=== PATIENT | female | born 1950 | race American Indian/Alaskan Native ===

== ENCOUNTER 2019-06-14 15:28 | Emergency (ER) | payer MEDICARE ==
--- NOTE | 2019-06-14 15:36 | Event Note ---
ED Screening Note Date of service: 06/14/19 Time: 15:35 ED Screening Note: 69 y/o female comes in for back pain and SOB s/p fall 3 days ago. This initial assessment/diagnostic orders/clinical plan/treatment(s) is/are subject to change based on patients health status, clinical progression and re- assessment by fellow clinical providers in the ED. Further treatment and workup at subsequent clinical providers discretion. Patient/guardian urged not to elope from the ED as their condition may be serious if not clinically assessed and managed. Initial orders include:
[2019-06-14 16:16] LABS: Basophils % (Auto) 0.5 % (0.0-1.8); Eosinophils # (Auto) 0.1 K/mm3 (0.0-0.4); Eosinophils % (Auto) 0.9 % (0.0-4.3); Hematocrit 42.4 % (30.3-42.9); Hemoglobin 14.1 gm/dl (10.1-14.3); Lymphocytes # (Auto) 1.3 K/mm3 (1.2-5.4); Lymphocytes % (Auto) 13.4 % (13.4-35.0); Mean Corpuscular HGB Conc 33 % (30-34); Mean Corpuscular Volume 91 fl (79-97); Monocytes # (Auto) 0.5 K/mm3 (0.0-0.8); Platelet Count 223 K/mm3 (140-440); Red Blood Count 4.68 M/mm3 (3.65-5.03); Red Cell Distribution Width 14.3 % (13.2-15.2)
--- NOTE | 2019-06-14 16:16 | XRay Report ---
CHEST 2 VIEWS INDICATION / CLINICAL INFORMATION: back and chest pain s/p fall. COMPARISON: None available. FINDINGS: SUPPORT DEVICES: None. HEART / MEDIASTINUM: Heart is upper normal size. LUNGS / PLEURA: No significant pulmonary or pleural abnormality. Lungs appear slightly hyperinflated with mild bibasilar scarring. ADDITIONAL FINDINGS: There are healed bilateral rib fractures. No acute, displaced rib fracture or ot her skeletal abnormality. IMPRESSION: 1. No acute findings. Signer Name: Ming Angulo MD Signed: 06/14/2019 4:11 PM Workstation Name: [id number]
--- NOTE | 2019-06-14 16:17 | XRay Report ---
LUMBAR SPINE 2 VIEWS INDICATION / CLINICAL INFORMATION: back pain s/p fall.. COMPARISON: None available. FINDINGS: VERTEBRAE: No acute fracture. No significant malalignment. DISC SPACES / FACET JOINTS:Disc spaces are reasonably preserved. Mild facet degenerative arthrosis at L4-5 and L5-S1. PARASPINAL SOFT TISSUES:No significant abnormality. ADDITIONAL FINDINGS: Cholecystectomy clips in the right upper quadrant. Signer Name: Ming Angulo MD Signed: 06/14/2019 4:12 PM Workstation Name: [id number]
[2019-06-14] MEDS ORDERED: ZOFRAN IV ONE (16:25)
[2019-06-14] MEDS ORDERED: SUBLIMAZE IV ONE (16:25)
[2019-06-14 16:29] LABS: Alanine Aminotransferase 23 units/L (7-56); Albumin 4.6 g/dL (3.9-5); BUN/Creatinine Ratio 29; Blood Urea Nitrogen 20 mg/dL (7-17); Calcium 9.8 mg/dL (8.4-10.2); Hemolysis Index 10
--- NOTE | 2019-06-14 16:30 | Emergency Department Report ---
HPI - General Chief Complaint: Fall Time Seen by Provider: 06/14/19 16:17 - HPI HPI: Room 4 The patient is a 69-year-old female presenting with a chief complaint of left flank pain. Patient states 2 days while attempting to sit down in a chair, the chair rolled from under her causing her fall striking her lower back on the chair. The patient complains of pain in her left flank since the fall. Patient complains of pain whenever she attempts to cough. Patient denies loss of consciousness. Patient gives her pain a score of 10/10 Location: [See above] Duration: [See above] Quality: [See above] Severity: [See above] Modifying factors: [see above] Context: [see above] Mode of transportation: [not driving] ED Past Medical Hx - Past Medical History Hx Hypertension: Yes Hx Congestive Heart Failure: Yes Hx COPD: Yes (home O2-4L) - Surgical History Hx Cholecystectomy: Yes Additional Surgical History: Thyroidectomy, 3 - Family History Family history: no significant - Social History Smoking Status: Former Smoker (none 3 years) Substance Use Type: Alcohol (occasional) - Medications Home Medications: Home Medications Medication Instructions Recorded Confirmed Last Taken Type Alendronate Sodium 70 mg PO 1XW 10/24/18 10/24/18 Unknown History Famotidine 20 mg PO HS 10/24/18 10/24/18 Unknown History Incruse Ellipta 1 applic INHALATION BID 10/24/18 10/24/18 Unknown History Spironolactone 50 mg PO BID 10/24/18 10/24/18 Unknown History busPIRone 5 mg PO BID 10/24/18 10/24/18 Unknown History ALBUTEROL Inhaler(NF) [VENTOLIN 1 puff IH Q4HR PRN #1 inha 10/26/18 Unknown Rx Inhaler(NF)] Ciprofloxacin HCl [Ciprofloxacin 500 mg PO BID #10 tablet 10/26/18 Unknown Rx TAB] Prednisone [predniSONE 5 mg (6-Day 5 mg PO .TAPER #1 tab.ds.pk 10/26/18 Unknown Rx Pack, 21 Tabs)] guaiFENesin ER [Mucinex ER] 600 mg PO BID #14 tablet 10/26/18 Unknown Rx metroNIDAZOLE [Flagyl] 500 mg PO Q8HR #14 tablet 10/26/18 Unknown Rx traMADol [Ultram] 50 mg PO Q6HR PRN #14 tablet 10/26/18 Unknown Rx Cyclobenzaprine [Flexeril] 10 mg PO TID PRN #14 tablet 06/14/19 Unknown Rx HYDROcodone/APAP 5-325 [[place] 1 - 2 each PO Q6HR PRN #14 tablet 06/14/19 Unknown Rx 5/325] Ibuprofen [Motrin 800 MG tab] 800 mg PO Q8HR PRN #20 tablet 06/14/19 Unknown Rx ED Review of Systems ROS: Stated complaint: BACK PAIN Other details as noted in HPI Constitutional: no symptoms reported Eyes: denies: eye pain ENT: denies: throat pain Respiratory: no symptoms reported Cardiovascular: denies: chest pain Endocrine: no symptoms reported Gastrointestinal: denies: abdominal pain Genitourinary: denies: dysuria Musculoskeletal: back pain Neurological: denies: headache Physical Exam - Physical Exam Vital Signs: Vital Signs 06/14/19 15:36 Temperature 98 F Pulse Rate 94 H Respiratory 24 Rate Blood Pressure 150/81 O2 Sat by Pulse 96 Oximetry Physical Exam: GENERAL: The patient is well-developed well-nourished female lying on stretcher appearing to be in mild discomfort. [] HEENT: Normocephalic. Atraumatic. Extraocular motions are intact. Patient has moist mucous membranes. NECK: Supple. Trachea midline CHEST/LUNGS: There is no respiratory distress noted. HEART/CARDIOVASCULAR: Regular. There is no tachycardia. ention. SKIN: There is no rash. There is no edema. There is no diaphoresis. NEURO: The patient is awake, alert, and oriented. The patient is cooperative. The patient has normal speech MUSCULOSKELETAL: There is no tenderness of the lumbar spine. There is tenderness to palpation and left flank. ED Course Vital Signs 06/14/19 15:36 Temperature 98 F Pulse Rate 94 H Respiratory 24 Rate Blood Pressure 150/81 O2 Sat by Pulse 96 Oximetry ED Medical Decision Making - Lab Data Result diagrams: 06/14/19 16:01 06/14/19 16:01 Laboratory Tests 06/14/19 06/14/19 06/14/19 16:01 16:01 19:59 WBC 9.4 RBC 4.68 Hgb 14.1 Hct 42.4 MCV 91 MCH 30 MCHC 33 RDW 14.3 Plt Count 223 Lymph % (Auto) 13.4 Major % (Auto) 5.0 Eos % (Auto) 0.9 Baso % (Auto) 0.5 Lymph # 1.3 Major # 0.5 Eos # 0.1 Baso # 0.0 Seg Neutrophils % 80.2 H Seg Neutrophils # 7.5 Sodium 141 Potassium 3.6 Chloride 104.0 Carbon Dioxide 25 Anion Gap 16 BUN 20 H Creatinine 0.7 Estimated GFR > 60 BUN/Creatinine Ratio 29 Glucose 143 H Calcium 9.8 Total Bilirubin 0.20 AST 16 ALT 23 Alkaline Phosphatase 83 NT-Pro-B Natriuret Pep 208.2 Total Protein 7.9 Albumin 4.6 Albumin/Globulin Ratio 1.4 Urine Color Straw Urine Turbidity Clear Urine pH 6.0 Urine Protein <15 mg/dl Urine Glucose (UA) Neg Urine Ketones Neg Urine Blood Neg Urine Nitrite Neg Urine Bilirubin Neg Urine Urobilinogen < 2.0 Ur Leukocyte Esterase Neg Urine WBC (Auto) < 1.0 Urine RBC (Auto) 1.0 U Epithel Cells (Auto) 2.0 Urine Mucus Few - Radiology Data Radiology results: report reviewed (lumbar spine x-ray, chest x-ray, CT abdomen and pelvis), image reviewed (lumbar spine x-ray, chest x-ray, CT abdomen and pelvis) interpreted by me: Lumbar spine x-ray-no acute fracture Chest x-ray-no focal infiltrates, no pneumothorax [facility] [address] [place] [address] XRay Report Signed Patient: KALEY HAGEN MR#: [id number] : 1950 Acct:[id number] Age/Sex: 69 / F ADM Date: 06/14/19 Loc: ED Attending Dr: Ordering Physician: SHIRLEY LUGO Date of Service: 06/14/19 Procedure(s): XR spine lumbosacral 2-3V Accession Number(s): [id number] cc: SHIRLEY LUGO Fluoro Time In Minutes: LUMBAR SPINE 2 VIEWS INDICATION / CLINICAL INFORMATION: back pain s/p fall.. COMPARISON: None available. FINDINGS: VERTEBRAE: No acute fracture. No significant malalignment. DISC SPACES / FACET JOINTS:Disc spaces are reasonably preserved. Mild facet degenerative arthrosis at L4-5 and L5-S1. PARASPINAL SOFT TISSUES:No significant abnormality. ADDITIONAL FINDINGS: Cholecystectomy clips in the right upper quadrant. Signer Name: Ming Angulo MD Signed: 06/14/2019 4:12 PM Workstation Name: [id number] Transcribed By: DT Dictated By: Kar Angulo MD Electronically Authenticated By: Kar Angulo MD Signed Date/Time: 06/14/19 161 DD/ 10 TD/TT: [address] [address] XRay Report Signed Patient: KALEY HAGEN MR#: [id number] : 1950 Acct:[id number] Age/Sex: 69 / F ADM Date: 06/14/19 Loc: ED Attending Dr: Ordering Physician: SHIRLEY LUGO Date of Service: 06/14/19 Procedure(s): XR chest routine 2V Accession Number(s): [id number] cc: SHIRLEY LUGO Fluoro Time In Minutes: CHEST 2 VIEWS INDICATION / CLINICAL INFORMATION: back and chest pain s/p fall. COMPARISON: None available. FINDINGS: SUPPORT DEVICES: None. HEART / MEDIASTINUM: Heart is upper normal size. LUNGS / PLEURA: No significant pulmonary or pleural abnormality. Lungs appear slightly hyperinflated with mild bibasilar scarring. ADDITIONAL FINDINGS: There are healed bilateral rib fractures. No acute, displaced rib fracture or other skeletal abnormality. IMPRESSION: 1. No acute findings. Signer Name: Ming Angulo MD Signed: 06/14/2019 4:11 PM Workstation Name: [id number] Transcribed By: DT Dictated By: Kar Angulo MD Electronically Authenticated By: Kar Angulo MD Signed Date/Time: 06/14/191610 DD/ 1610 TD/TT: [address] [address] Cat Scan Report Signed Patient: KALEY HAGEN MR#: [id number] : 1950 Acct:[id number] Age/Sex: 69 / F ADM Date: 06/14/19 Loc: ED Attending Dr: Ordering Physician: RYAN MCCLELLAND MD Date of Service: 06/14/19 Procedure(s): CT abdomen pelvis w con Accession Number(s): [id number] cc: RYAN MCCLELLAND MD CT ABDOMEN AND PELVIS WITH IV CONTRAST INDICATION: left flank pain after fall. COMPARISON: None available. TECHNIQUE: Axial CT images were obtained through the abdomen and pelvis after 100 mL IV contrast. All CT scans at this location are performed using CT dose reduction for ALARA by means of automated exposure control. FINDINGS -- ABDOMEN: Lung Bases: No acute abnormality. Liver: Normal. Gallbladder: Removed. Bile Ducts: Normal. Pancreas: Normal. Spleen: Normal. Adrenals: Normal. Right Kidney and Proximal Ureter: Normal. Several tiny cysts Left Kidney and Proximal Ureter: Several tiny cysts. . Stomach and Bowel: Normal. Lymph Nodes: No significant adenopathy. Aorta: No significant abnormality. IVC: Normal. Additional Findings: None. FINDINGS -- PELVIS: Urinary Bladder and Distal Ureters: Normal. Reproductive Organs: No acute abnormality. Appendix: Normal. Bowel: No acute abnormality. Free Fluid: None. Lymph Nodes: No significant adenopathy. Additional Findings: None. Skeletal System: Mild thoracolumbar degenerative change. There is some evidence of low-level compression deformity involving the L3 vertebral body, likely chronic. Impression: No acute intra-abdominal findings. No splenic laceration or injury. Both kidneys appear grossly unremarkable aside from several cysts. Signer Name: Shekhar Carver MD Signed: 06/14/2019 7:18 PM Workstation Name: [id number] Transcribed By: BC Dictated By: Shekhar Carver MD Electronically Authenticated By: Shekhar Carver MD Signed Date/Time: 06/14/191917 DD/ 15 TD/TT: - Differential Diagnosis lumbar contusion, renal contusion Critical care attestation.: If time is entered above; I have spent that time in minutes in the direct care of this critically ill patient, excluding procedure time. ED Disposition Clinical Impression: Contusion of left side of back Disposition: DC-01 TO HOME OR SELFCARE Is pt being admited?: No Does the pt Need Aspirin: No Condition: Stable Additional Instructions: Return to the emergency department immediately should you develop worsening symptoms, fever, inability to tolerate food or liquid or any other concerns. Prescriptions: Cyclobenzaprine [Flexeril] 10 mg PO TID PRN #14 tablet PRN Reason: Muscle Spasm Ibuprofen [Motrin 800 MG tab] 800 mg PO Q8HR PRN #20 tablet PRN Reason: Pain, Moderate (4-6) HYDROcodone/APAP 5-325 [[place] 5/325] 1 - 2 each PO Q6HR PRN #14 tablet PRN Reason: Pain Referrals: TEA SOLORIO MD [Primary Care Provider] - 3-5 Days Time of Disposition: 20:26
--- NOTE | 2019-06-14 19:23 | Cat Scan Report ---
CT ABDOMEN AND PELVIS WITH IV CONTRAST INDICATION: left flank pain after fall. COMPARISON: None available. TECHNIQUE: Axial CT images were obtained through the abdomen and pelvis after 100 mL IV contrast. All CT scans a t this location are performed using CT dose reduction for ALARA by means of automated exposure contro l. FINDINGS -- ABDOMEN: Lung Bases: No acute abnormality. Liver: Normal. Gallbladder: Removed. Bile Ducts: Normal. Pancreas: Normal. Spleen: Normal. Adrenals: Normal. Right Kidney and Proximal Ureter: Normal. Several tiny cysts Left Kidney and Proximal Ureter: Several tiny cysts. . Stomach and Bowel: Normal. Lymph Nodes: No significant adenopathy. Aorta: No significant abnormality. IVC: Normal. Additional Findings: None. FINDINGS -- PELVIS: Urinary Bladder and Distal Ureters: Normal. Reproductive Organs: No acute abnormality. Appendix: Normal. Bowel: No acute abnormality. Free Fluid: None. Lymph Nodes: No significant adenopathy. Additional Findings: None. Skeletal System: Mild thoracolumbar degenerative change. There is some evidence of low-level compress ion deformity involving the L3 vertebral body, likely chronic. Impression: No acute intra-abdominal findings. No splenic laceration or injury. Both kidneys appear g rossly unremarkable aside from several cysts. Signer Name: Shekhar Carver MD Signed: 06/14/2019 7:18 PM Workstation Name: [id number]
[2019-06-14 20:22] LABS: Bilirubin,Urine NEG (Negative); Blood,Urine NEG (Negative); Color,Urine Straw (Yellow); Mucus,Urine FEW /HPF; Protein,Urine <15 mg/dL mg/dL (Negative); Urobilinogen,Urine < 2.0 mg/dL (<2.0); WBC,Urine < 1.0 /HPF (0.0-6.0)
[2019-06-14 20:37] VITALS: BP 143/76
== END 2019-06-14 20:40 | disposition home or self-care (01) ==
LOC: ED 15:28
DX: S30.0XXA Contusion of lower back and pelvis, initial encounter (principal); I11.0 Hypertensive heart disease with heart failure; I50.9 Heart failure, unspecified; J44.9 Chronic obstructive pulmonary disease, unspecified; Z90.49 Acquired absence of other specified parts of digestive tract; Z87.891 Personal history of nicotine dependence; Z99.81 Dependence on supplemental oxygen; Z90.89 Acquired absence of other organs; W18.30XA Fall on same level, unspecified, initial encounter; Y93.89 Activity, other specified; Y92.89 Other specified places as the place of occurrence of the external cause; Y99.8 Other external cause status
CPT/HCPCS: 36415; 71046; 72100; 74177; 80053; 81001; 83880; 85025; 96374; 96375; 99284; J2405; J3010; Q9967

== ENCOUNTER 2019-11-06 08:47 | Observation (INO) | payer MEDICARE ==
[2019-11-06] MEDS ORDERED: LORazepam 2 MG/ML VIAL IV ONE (09:42)
[2019-11-06] MEDS ORDERED: ALUM-MAG HYDROXIDE-SIMETHICONE 200-200-20MG/5ML ORAL LIQD 30 ML PO ONE (09:43)
--- NOTE | 2019-11-06 09:47 | Emergency Department Report ---
<HELADIO LEBRON - Last Filed: 11/06/19 15:12> ED General Adult HPI - General Chief complaint: Dyspnea/Respdistress Stated complaint: GENARO Time Seen by Provider: 11/06/19 09:25 Source: patient Mode of arrival: Wheelchair Limitations: No Limitations - History of Present Illness Initial comments: This is a 69-year-old female with a history of COPD on home O2. She states that she was constipated and tried to take 2 of her prescription medicines and another pill for her constipation prior to arrival. She claims that they got st uck in her neck. She admits to having problems with her nerves. She has been placing multiple topical analgesic patches on her neck and anterior chest and abdomen. She is really quite anxious at the time of my encounter. He repeatedly states "I need to belch". H and doesn't complain of acute shortness of breath nor acute pain. -: Gradual - Related Data Previous Rx's Medication Instructions Recorded Last Taken Type ALBUTEROL Inhaler(NF) [VENTOLIN 1 puff IH Q4HR PRN #1 inha 10/26/18 07/28/19 Rx Inhaler(NF)] ALBUTEROL NEB's [Proventil 0.083% 2.5 mg IH Q4HRT PRN #15 nebu 08/01/19 Unknown Rx NEBS] Acetaminophen [Acetaminophen TAB] 2 tab PO Q4H PRN #15 tablet 08/01/19 Unknown Rx Arformoterol Nebu [Brovana Nebu] 15 mcg IH Q12HRT #30 ml 08/01/19 Unknown Rx Aspirin 325 mg PO QDAY #30 08/01/19 07/28/19 Rx Budesonide [Pulmicort Respules] 0.5 mg IH Q12HRT #30 nebu 08/01/19 Unknown Rx Ipratropium/Albuterol Sulfate 1 ampul IH Q6HRT #30 ampul.neb 08/01/19 Unknown Rx [DUONEB *Not for PRN Use*] Polyethylene Glycol 3350 [Miralax 17 gm PO QDAY PRN #1 powd.pack 08/01/19 Unknown Rx 3350] amLODIPine 10 mg PO DAILY #30 tablet 08/01/19 Unknown Rx hydrALAZINE [Apresoline TAB] 25 mg PO Q8HR #90 tablet 08/01/19 Unknown Rx methylPREDNISolone [Medrol 4MG 1 dose PO DAILY #1 tab.ds.pk 08/01/19 Unknown Rx DOSEPAK (21 tabs)] oxyCODONE /ACETAMINOPHEN [Percocet 1 tab PO Q6H PRN #15 tablet 08/01/19 Unknown Rx 5/325 mg] Allergies Allergy/AdvReac Type Severity Reaction Status Date / Time codeine Allergy Itching Verified 10/23/18 15:00 ED Review of Systems Comment: Unobtainable due to pts medical conditions ED Past Medical Hx - Past Medical History Previous Medical History?: Yes Hx Hypertension: Yes Hx Congestive Heart Failure: Yes Hx Asthma: Yes Hx COPD: Yes (home O2-4L) Hx Tuberculosis: No - Surgical History Past Surgical History?: Yes Hx Cholecystectomy: Yes Additional Surgical History: Thyroidectomy, 3 - Social History Smoking Status: Former Smoker Substance Use Type: None - Medications Home Medications: Home Medications Medication Instructions Recorded Confirmed Last Taken Type ALBUTEROL Inhaler(NF) [VENTOLIN 1 puff IH Q4HR PRN #1 inha 10/26/18 07/28/19 07/28/19 Rx Inhaler(NF)] ALBUTEROL NEB's [Proventil 0.083% 2.5 mg IH Q4HRT PRN #15 nebu 08/01/19 Unknown Rx NEBS] Acetaminophen [Acetaminophen TAB] 2 tab PO Q4H PRN #15 tablet 08/01/19 Unknown Rx Arformoterol Nebu [Brovana Nebu] 15 mcg IH Q12HRT #30 ml 08/01/19 Unknown Rx Aspirin 325 mg PO QDAY #30 08/01/19 07/28/19 07/28/19 Rx Budesonide [Pulmicort Respules] 0.5 mg IH Q12HRT #30 nebu 08/01/19 Unknown Rx Ipratropium/Albuterol Sulfate 1 ampul IH Q6HRT #30 ampul.neb 08/01/19 Unknown Rx [DUONEB *Not for PRN Use*] Polyethylene Glycol 3350 [Miralax 17 gm PO QDAY PRN #1 powd.pack 08/01/19 Unknown Rx 3350] amLODIPine 10 mg PO DAILY #30 tablet 08/01/19 Unknown Rx hydrALAZINE [Apresoline TAB] 25 mg PO Q8HR #90 tablet 08/01/19 Unknown Rx methylPREDNISolone [Medrol 4MG 1 dose PO DAILY #1 tab.ds.pk 08/01/19 Unknown Rx DOSEPAK (21 tabs)] oxyCODONE /ACETAMINOPHEN [Percocet 1 tab PO Q6H PRN #15 tablet 08/01/19 Unknown Rx 5/325 mg] ED Physical Exam - General Limitations: Other (extreme anxiety) General appearance: alert, anxious - Head Head exam: Present: atraumatic, normocephalic - Eye Eye exam: Present: normal appearance. Absent: scleral icterus - ENT ENT exam: Present: mucous membranes moist - Neck Neck exam: Present: normal inspection. Absent: tenderness, meningismus - Respiratory Respiratory exam: Present: normal lung sounds bilaterally. Absent: respiratory distress - Cardiovascular Cardiovascular Exam: Present: regular rate, normal rhythm. Absent: systolic murmur, diastolic murmur, rubs, gallop - GI/Abdominal GI/Abdominal exam: Present: soft, normal bowel sounds, hernia (ventral hernia). Absent: distended, tenderness, guarding, rebound, rigid - Extremities Exam Extremities exam: Present: normal inspection - Back Exam Back exam: Present: normal inspection - Neurological Exam Neurological exam: Present: alert, oriented X3, CN II-XII intact. Absent: motor sensory deficit - Psychiatric Psychiatric exam: Present: agitated, anxious - Skin Skin exam: Present: warm, dry, intact, normal color, other (multiple topical patches placed on the patient's neck she and upper abdomen). Absent: rash ED Course - Reevaluation(s) Reevaluation #1: She has been seen by GI. They have ordered contrast esophagram. This is yet pending. Labs are yet pending. The patient was signed out to Dr. Larsen for final disposition. 11/06/19 15:03 Reevaluation #2: She required another neb. It has been ordered. Solu-Medrol ordered. 11/06/19 15:11 ED Disposition Clinical Impression: Foreign body COPD (chronic obstructive pulmonary disease) Qualifiers: COPD type: unspecified COPD Qualified Code(s): J44.9 - Chronic obstructive pulmonary disease, unspecified Dysphagia Qualifiers: Dysphagia type: unspecified Qualified Code(s): R13.10 - Dysphagia, unspecified Disposition: OP ADMIT IP TO THIS HOSP Condition: Stable Instructions: Chronic Obstructive Pulmonary Disease (ED) Referrals: TEA SOLORIO MD [Primary Care Provider] - 3-5 Days <MICHEAL MOJICA - Last Filed: 11/06/19 16:58> ED Review of Systems ROS: Stated complaint: GENARO Other details as noted in HPI ED Course Vital Signs 11/06/19 11/06/19 11/06/19 08:50 09:26 09:31 Temperature 98.4 F Pulse Rate 112 H 91 H Pulse Rate [ Anterior Bilateral Throughout] Respiratory 28 H 26 H Rate Respiratory Rate [Anterior Bilateral Throughout] Blood Pressure 174/96 Blood Pressure [left arm\\] O2 Sat by Pulse 95 98 98 Oximetry 11/06/19 11/06/19 11/06/19 09:32 10:01 10:11 Temperature 98.6 F Pulse Rate 98 H Pulse Rate [ 92 H Anterior Bilateral Throughout] Respiratory 24 Rate Respiratory 24 Rate [Anterior Bilateral Throughout] Blood Pressure 182/93 Blood Pressure 182/89 [left arm\\] O2 Sat by Pulse 96 Oximetry 11/06/19 11/06/19 11/06/19 11:00 12:00 13:00 Temperature Pulse Rate 98 H 96 H 96 H Pulse Rate [ Anterior Bilateral Throughout] Respiratory 23 23 23 Rate Respiratory Rate [Anterior Bilateral Throughout] Blood Pressure 162/91 163/86 162/83 Blood Pressure [left arm\\] O2 Sat by Pulse 96 94 94 Oximetry 11/06/19 11/06/19 11/06/19 14:00 15:01 16:00 Temperature Pulse Rate 93 H 87 Pulse Rate [ Anterior Bilateral Throughout] Respiratory 24 20 Rate Respiratory Rate [Anterior Bilateral Throughout] Blood Pressure 155/83 155/83 160/81 Blood Pressure [left arm\\] O2 Sat by Pulse 95 99 97 Oximetry - Reevaluation(s) Reevaluation #3: 11/06/19 16:57 Fluoroscopy results are reviewed and appreciated. Gastroenterology results are reviewed and appreciated. Hospital physician, Dr. Tong to admit patient to the medical service for COPD exacerbation, and presumed foreign body. ED Medical Decision Making - Lab Data Result diagrams: 11/06/19 15:11 11/06/19 15:11 Vital Signs 11/06/19 11/06/19 11/06/19 08:50 09:26 09:31 Temperature 98.4 F Pulse Rate 112 H 91 H Pulse Rate [ Anterior Bilateral Throughout] Respiratory 28 H 26 H Rate Respiratory Rate [Anterior Bilateral Throughout] Blood Pressure 174/96 Blood Pressure [left arm\\] O2 Sat by Pulse 95 98 98 Oximetry 11/06/19 11/06/19 11/06/19 09:32 10:01 10:11 Temperature 98.6 F Pulse Rate 98 H Pulse Rate [ 92 H Anterior Bilateral Throughout] Respiratory 24 Rate Respiratory 24 Rate [Anterior Bilateral Throughout] Blood Pressure 182/93 Blood Pressure 182/89 [left arm\\] O2 Sat by Pulse 96 Oximetry 11/06/19 11/06/19 11/06/19 11:00 12:00 13:00 Temperature Pulse Rate 98 H 96 H 96 H Pulse Rate [ Anterior Bilateral Throughout] Respiratory 23 23 23 Rate Respiratory Rate [Anterior Bilateral Throughout] Blood Pressure 162/91 163/86 162/83 Blood Pressure [left arm\\] O2 Sat by Pulse 96 94 94 Oximetry 11/06/19 11/06/19 11/06/19 14:00 15:01 16:00 Temperature Pulse Rate 93 H 87 Pulse Rate [ Anterior Bilateral Throughout] Respiratory 24 20 Rate Respiratory Rate [Anterior Bilateral Throughout] Blood Pressure 155/83 155/83 160/81 Blood Pressure [left arm\\] O2 Sat by Pulse 95 99 97 Oximetry Lab Results 11/06/19 11/06/19 11/06/19 Range/Units 15:11 15:11 15:11 WBC 8.0 (4.5-11.0) K/mm3 RBC 4.50 (3.65-5.03) M/mm3 Hgb 13.6 (10.1-14.3) gm/dl Hct 42.2 (30.3-42.9) % MCV 94 (79-97) fl MCH 30 (28-32) pg MCHC 32 (30-34) % RDW 14.6 (13.2-15.2) % Plt Count 160 (140-440) K/mm3 PT 12.2 (12.2-14.9) Sec. INR 0.90 (0.87-1.13) APTT 28.3 (24.2-36.6) Sec. Sodium 144 (137-145) mmol/L Potassium 4.1 (3.6-5.0) mmol/L Chloride 102.3 (98-107) mmol/L Carbon Dioxide 27 (22-30) mmol/L Anion Gap 19 mmol/L BUN 17 (7-17) mg/dL Creatinine 0.4 L (0.7-1.2) mg/dL Estimated GFR > 60 ml/min BUN/Creatinine Ratio 43 % Glucose 121 H (65-100) mg/dL Calcium 9.5 (8.4-10.2) mg/dL Magnesium 2.00 (1.7-2.3) mg/dL Total Bilirubin 0.40 (0.1-1.2) mg/dL Direct Bilirubin < 0.2 (0-0.2) mg/dL Indirect Bilirubin 0.2 mg/dL AST 15 (5-40) units/L ALT 21 (7-56) units/L Alkaline Phosphatase 44 (35-129) units/L Total Creatine Kinase 34 (30-135) units/L CK-MB (CK-2) 1.8 (0.0-4.0) ng/mL CK-MB (CK-2) Rel Index 5.2 H (0-4) Troponin T < 0.010 (0.00-0.029) ng/mL NT-Pro-B Natriuret Pep 690.6 (0-900) pg/mL Total Protein 6.6 (6.3-8.2) g/dL Albumin 4.1 (3.9-5) g/dL Albumin/Globulin Ratio 1.6 % - Radiology Data Radiology results: report reviewed Critical care attestation.: If time is entered above; I have spent that time in minutes in the direct care of this critically ill patient, excluding procedure time. ED Disposition Is pt being admited?: Yes
[2019-11-06] MEDS ORDERED: IPRATROPIUM/ALBUTEROL SULFATE 3 ML AMPUL.NEB IH ONE ×2 (09:53→15:11)
[2019-11-06] MEDS ORDERED: MORPHINE 2 MG/1 ML INJ ONE (11:23)
[2019-11-06] MEDS ORDERED: MORPHINE 2 MG/1 ML INJ IV ONE (11:25)
--- NOTE | 2019-11-06 11:46 | Gastroenterology Consultation ---
History of Present Illness - Reason for Consult Consult date: 11/06/19 difficulty swallowing Requesting physician: HELADIO LEBRON - History of Present Illness Patient is a 69 y/o female with PMH of HTN, CHF, COPD (on continuous home O2) and GERD who presented to ED with c/o difficulty swallowing after taking taking multiple large pills yesterday evening for constipation with sensation that they got stuck in her neck and now associated pain with swallowing. She placed multiple topical analgesic patches on neck/chest/abdomen at home with no improvement in symptoms. Able to tolerate drinking sips of Gatorade and saliva w/o regurgitation or vomiting. Denies abd pain. No known prior EGD or hx of esophageal stricture. Patient noted to be very anxious upon exam. States " I am scared to eat anything" and "I feel like I need to belch". Past History Past Medical History: other (as per HPI) Past Surgical History: cholecystectomy, , Other (Thyroidectomy) Social history: lives with family, other (former smoker) Medications and Allergies Allergies Allergy/AdvReac Type Severity Reaction Status Date / Time codeine Allergy Itching Verified 10/23/18 15:00 Home Medications Medication Instructions Recorded Confirmed Last Taken Type ALBUTEROL Inhaler(NF) [VENTOLIN 1 puff IH Q4HR PRN #1 inha 10/26/18 07/28/19 07/28/19 Rx Inhaler(NF)] ALBUTEROL NEB's [Proventil 0.083% 2.5 mg IH Q4HRT PRN #15 nebu 08/01/19 Unknown Rx NEBS] Acetaminophen [Acetaminophen TAB] 2 tab PO Q4H PRN #15 tablet 08/01/19 Unknown Rx Arformoterol Nebu [Brovana Nebu] 15 mcg IH Q12HRT #30 ml 08/01/19 Unknown Rx Aspirin 325 mg PO QDAY #30 08/01/19 07/28/19 07/28/19 Rx Budesonide [Pulmicort Respules] 0.5 mg IH Q12HRT #30 nebu 08/01/19 Unknown Rx Ipratropium/Albuterol Sulfate 1 ampul IH Q6HRT #30 ampul.neb 08/01/19 Unknown Rx [DUONEB *Not for PRN Use*] Polyethylene Glycol 3350 [Miralax 17 gm PO QDAY PRN #1 powd.pack 08/01/19 Unknown Rx 3350] amLODIPine 10 mg PO DAILY #30 tablet 08/01/19 Unknown Rx hydrALAZINE [Apresoline TAB] 25 mg PO Q8HR #90 tablet 08/01/19 Unknown Rx methylPREDNISolone [Medrol 4MG 1 dose PO DAILY #1 tab.ds.pk 08/01/19 Unknown Rx DOSEPAK (21 tabs)] oxyCODONE /ACETAMINOPHEN [Percocet 1 tab PO Q6H PRN #15 tablet 08/01/19 Unknown Rx 5/325 mg] Active Meds: medications reviewed/updated as required Review of Systems - Review of Systems All systems: negative Gastrointestinal: other (difficulty/pain swallowing) Exam - Constitutional Vital Signs: Temp Pulse Resp BP Pulse Ox 98.6 F 98 H 23 162/91 96 11/06/19 09:32 11/06/19 11:00 11/06/19 11:00 11/06/19 11:00 11/06/19 11:00 General appearance: mild distress (2/2 anxiety) - EENT Eyes: PERRL, EOM intact ENT: hearing intact - Respiratory Respiratory effort: labored (slightly) Respiratory: bilateral: diminished - Cardiovascular Rhythm: regular - Gastrointestinal General gastrointestinal: Present: soft, tender (epigastric), non-distended, normal bowel sounds - Integumentary Integumentary: Present: warm, dry - Neurologic Neurological: alert and oriented x3 - Psychiatric Psychiatric: other (anxious) Assessment and Plan 1.difficulty/pain with swallowing 2.H/o GERD (on daily PPI) 3.COPD (on continuous O2) -patient took multiple large pills for constipation yesterday with the feeling that they got stuck in her throat with not associated pain with swallowing. Tolerates sips of liquid and saliva w/o regurgitation or vomiting. -will order esophagram for further evaluation -consider EGD based on results -Keep NPO for now -start on PPI -continue supportive care -further recommendations to follow above results
[2019-11-06] MEDS: PANTOPRAZOLE 40 MG INJ IV SCH ×2 (13:18→22:25)
[2019-11-06] MEDS ORDERED: methylPREDNISolone Sod Succinate 125 MG/2 ML INJ IV ONE (15:11)
[2019-11-06 15:35] LABS: Hematocrit 42.2 % (30.3-42.9); Hemoglobin 13.6 gm/dl (10.1-14.3); Mean Corpuscular HGB Conc 32 % (30-34); Mean Corpuscular Volume 94 fl (79-97); Platelet Count 160 K/mm3 (140-440); Red Cell Distribution Width 14.6 % (13.2-15.2)
--- NOTE | 2019-11-06 15:35 | Fluoroscopy Report ---
Limited barium swallow Indication: difficulty swallowing. Patient with choking sensation and reports 3 separate pills stuc k in the throat Technique: Limited single contrast barium technique utilized to evaluate the esophagus. Findings: To begin the exam, the patient was unable to stand and was placed in approximately 30 degr ees upright position, slightly LPO. Patient swallowed a small amount of thin barium which showed a sm all filling defect in the proximal esophagus which could represent a foreign body. There was contrast passage distally into the stomach with no high-grade obstruction identified. The esophagus was not w ell distended during the exam because the patient had difficulty participating. The exam is ultimatel y aborted because the patient experienced the sensation of choking and vomiting. Impression: Very limited exam with questionable foreign body in the upper esophagus. Fluoroscopic time: 1.3 minutes Number of fluoroscopic images: 11 Signer Name: Lam Ruiz MD Signed: 11/06/2019 3:30 PM Workstation Name: [id number]
[2019-11-06 15:45] LABS: INR 0.9 (0.87-1.13)
[2019-11-06 15:46] LABS: Partial Thromboplastin Time 28.3 Sec. (24.2-36.6)
[2019-11-06 15:53] LABS: Creatine Kinase MB 1.8 ng/mL (0.0-4.0)
[2019-11-06 15:56] LABS: Alanine Aminotransferase 21 units/L (7-56); Albumin 4.1 g/dL (3.9-5); BUN/Creatinine Ratio 43; Bilirubin,Direct < 0.2 mg/dL (0-0.2); Blood Urea Nitrogen 17 mg/dL (7-17); Calcium 9.5 mg/dL (8.4-10.2); Hemolysis Index 9
--- NOTE | 2019-11-06 16:59 | History and Physical Report ---
History of Present Illness Chief complaint: I feel like something is stuck in my throat History of present illness: 69 YO Female with COPD, Chronic Respiratory Failure on 4L home oxygen via [place], HTN, Diastolic CHF presents to ED for evaluation. Pt states that she feels like she has something "stuck in her throat" Pt states that she took several of her medications today and shortly after ingestion she developed the aforementioned symptoms. has experienced shortness of breath over the past 4 days with worsening symptoms over the past 2 days. Pt transported to [facility] via private vehicle. Pt Pt seen and evaluated in ED and underwent a barium swallow and was found to have a distal filling defect, as well as Acute on Chronic Respiratory Failure requiring nebulizer therapy and increased supplemental oxygen. Pt treated with supportive care and placed in observation status and admitted to [facility]. Pt denies fever, chills, CP, Palpitations, NVD, Trauma, Unilateral leg swelling, calf pain, hemoptysis, or recent ill contacts. Prior admission on 07/28/19 reviewed. All medication listed at time of admission was reconciled. GI team consulted in ED. Past History Past Medical History: other (as per HPI) Past Surgical History: cholecystectomy, , Other (Thyroidectomy) Social history: lives with family, other (former smoker) Family history: hypertension Medications and Allergies Allergies Allergy/AdvReac Type Severity Reaction Status Date / Time codeine Allergy Itching Verified 10/23/18 15:00 Home Medications Medication Instructions Recorded Confirmed Last Taken Type ALBUTEROL Inhaler(NF) [VENTOLIN 1 puff IH Q4HR PRN #1 inha 10/26/18 07/28/19 07/28/19 Rx Inhaler(NF)] ALBUTEROL NEB's [Proventil 0.083% 2.5 mg IH Q4HRT PRN #15 nebu 08/01/19 Unknown Rx NEBS] Acetaminophen [Acetaminophen TAB] 2 tab PO Q4H PRN #15 tablet 08/01/19 Unknown Rx Arformoterol Nebu [Brovana Nebu] 15 mcg IH Q12HRT #30 ml 08/01/19 Unknown Rx Aspirin 325 mg PO QDAY #30 08/01/19 07/28/19 07/28/19 Rx Budesonide [Pulmicort Respules] 0.5 mg IH Q12HRT #30 nebu 08/01/19 Unknown Rx Ipratropium/Albuterol Sulfate 1 ampul IH Q6HRT #30 ampul.neb 08/01/19 Unknown Rx [DUONEB *Not for PRN Use*] Polyethylene Glycol 3350 [Miralax 17 gm PO QDAY PRN #1 powd.pack 08/01/19 Unknown Rx 3350] amLODIPine 10 mg PO DAILY #30 tablet 08/01/19 Unknown Rx hydrALAZINE [Apresoline TAB] 25 mg PO Q8HR #90 tablet 08/01/19 Unknown Rx methylPREDNISolone [Medrol 4MG 1 dose PO DAILY #1 tab.ds.pk 08/01/19 Unknown Rx DOSEPAK (21 tabs)] oxyCODONE /ACETAMINOPHEN [Percocet 1 tab PO Q6H PRN #15 tablet 08/01/19 Unknown Rx 5/325 mg] Active Meds: Active Medications Pantoprazole Sodium (Protonix) 40 mg IV BID REJI Last Admin: 11/06/19 13:18 Dose: 40 mg Documented by: Review of Systems Constitutional: other (something is stuck in my throat) Ears, nose, mouth and throat: swelling in throat, no ear pain, no ear discharge, no tinnitis, no decreased hearing, no nose pain Breasts: no change in shape, no swelling, no mass Respiratory: no cough, no excessive sputum, no hemoptysis, no shortness of breath Gastrointestinal: no abdominal pain, no nausea, no vomiting, no diarrhea, no constipation Genitourinary Female: no pelvic pain, no flank pain, no menorrhagia, no dysuria, no urinary frequency, no urgency Rectal: no pain, no incontinence, no bleeding Musculoskeletal: no neck stiffness, no neck pain, no shooting arm pain, no arm numbness/tingling, no shooting leg pain, no leg numbness/tingling, no redness of joints Integumentary: no rash, no pruritis, no redness, no sores, no wounds, no jaundice Neurological: no transient paralysis, no paralysis, no weakness, no parathesias, no numbness, no seizures, no syncope, no tremors Psychiatric: no anxiety, no memory loss, no change in sleep habits, no sleep disturbances, no insomnia, no hypersomnia, no change in appetite, no change in libido Endocrine: no cold intolerance, no heat intolerance, no polyphagia, no excessive thirst, no polydipsia, no polyuria, no nocturia, no excessive sweating Hematologic/Lymphatic: no easy bruising, no easy bleeding, no lymphadenopathy, no lymphedema Allergic/Immunologic: no urticaria, no allergic rhinitis, no anaphylaxis Exam - Constitutional Vitals: Temp Pulse Resp BP Pulse Ox 98.6 F 87 20 160/81 97 11/06/19 09:32 11/06/19 16:00 11/06/19 16:00 11/06/19 16:00 11/06/19 16:00 General appearance: Present: mild distress, obese - EENT Eyes: Present: PERRL ENT: hearing intact, clear oral mucosa - Neck Neck: Present: supple, normal ROM - Respiratory Respiratory effort: normal Respiratory: bilateral: diminished - Cardiovascular Heart Sounds: Present: S1 & S2. Absent: rub, click - Extremities Extremities: pulses symmetrical, No edema Peripheral Pulses: within normal limits - Abdominal General gastrointestinal: Present: soft, non-tender, non-distended, normal bowel sounds Female genitourinary: Present: normal - Integumentary Integumentary: Present: clear, warm, dry - Musculoskeletal Musculoskeletal: gait normal, strength equal bilaterally - Psychiatric Psychiatric: appropriate mood/affect, intact judgment & insight - Neurologic Neurologic: CNII-XII intact, moves all extremities Results - Labs CBC & Chem 7: 11/06/19 15:11 11/06/19 15:11 Labs: Abnormal lab results 11/06/19 Range/Units 15:11 Creatinine 0.4 L (0.7-1.2) mg/dL Glucose 121 H (65-100) mg/dL CK-MB (CK-2) Rel Index 5.2 H (0-4) Assessment and Plan - Patient Problems (1) Foreign body Current Visit: Yes Status: Acute Plan to address problem: GI consulted in ED, Barium swallow, further testing as per GI team, bowel rest (2) COPD (chronic obstructive pulmonary disease) Current Visit: Yes Status: Acute Qualifiers: COPD type: unspecified COPD Qualified Code(s): J44.9 - Chronic obstructive pulmonary disease, unspecified Plan to address problem: Supplemental oxygen, nebulizer therapy, Chest x ray, NIPPV as clinically indicated, pulse oximetry (3) Acute and chronic respiratory failure with hypoxia Current Visit: No Status: Acute Plan to address problem: Pulse oximetry, Chest Xray, supplemental oxygen, nebulizer therapy, NIPPV as clinically indicated. (4) HTN (hypertension) Current Visit: Yes Status: Acute Qualifiers: Hypertension type: essential hypertension Qualified Code(s): I10 - Essential (primary) hypertension Plan to address problem: Monitor BP q shift, continue medical management. (5) DVT prophylaxis Current Visit: Yes Status: Acute Plan to address problem: SCD to BLE while in bed,
[2019-11-06 17:05] LABS: Basophils % (Manual) 0 % (0.0-1.8); Eosinophils % (Manual) 0 % (0.0-4.3); RBC Morphology Normal; Total Cells Counted 100
[2019-11-06] MEDS ORDERED: ONDANSETRON 4 MG/2 ML INJ IV PRN (17:06)
[2019-11-06] MEDS ORDERED: ALBUTEROL 2.5 MG/3 ML NEBU IH PRN (17:06)
[2019-11-06] MEDS ORDERED: ACETAMINOPHEN 325 MG TAB PO PRN (17:06)
[2019-11-06] MEDS ORDERED: LIDOCAINE VISCOUS 2% 15 ML ORAL LIQD PO ONE (17:52)
[2019-11-06] MEDS ORDERED: LIDOCAINE VISCOUS 2% 15 ML ORAL LIQD ONE (17:56)
[2019-11-06] MEDS: methylPREDNISolone Sod Succinate 40 MG/1 ML INJ IV SCH (22:25)
[2019-11-07] MEDS ORDERED: IPRATROPIUM/ALBUTEROL SULFATE 3 ML AMPUL.NEB IH SCH
[2019-11-07] MEDS: IPRATROPIUM/ALBUTEROL SULFATE 3 ML AMPUL.NEB IH SCH ×4 (02:30→20:26)
[2019-11-07] MEDS ORDERED: LIDOCAINE MPF (2%) 20 MG/1 ML VIAL 5 ML ONE (10:00)
[2019-11-07] MEDS: PANTOPRAZOLE 40 MG INJ IV SCH (11:12)
[2019-11-07] MEDS: methylPREDNISolone Sod Succinate 40 MG/1 ML INJ IV SCH ×2 (11:15→23:03)
[2019-11-07 13:23] LABS: Bilirubin,Urine NEG (Negative); Blood,Urine NEG (Negative); Color,Urine Yellow (Yellow); Mucus,Urine FEW /HPF; Urobilinogen,Urine < 2.0 mg/dL (<2.0)
[2019-11-07] MEDS ORDERED: SODIUM CHLORIDE 0.9% 1000 ML 1,000 ML IV SCH (14:45)
--- NOTE | 2019-11-07 15:02 | Progress Note ---
Assessment and Plan Assessment and plan: Dysphagia Poss foreign body For EGD today GI consulted in ED, Barium swallow, COPD (chronic obstructive pulmonary disease) Supplemental oxygen, nebulizer therapy, Chest x ray, NIPPV as clinically indicated, pulse oximetry Acute and chronic respiratory failure with hypoxia Pulse oximetry, Chest Xray, supplemental oxygen, nebulizer therapy, NIPPV as clinically indicated. Hypertension) Monitor BP q shift, continue medical management. DVT prophylaxis SCD to BLE while in bed, History Interval history: Difficulty swallowing Pain on swallowing Hospitalist Physical - Physical exam Narrative exam: Gen: Not in acute distress, lying in bed, obese HEENT: Normocephalic, atraumatic Neck: supple, no JVD Heart: S1 and S2 reg, no murmurs, rubs or gallop Lungs: clear to auscultation bilaterally, no crackles Abd: soft, NT, non distended, normal BS Ext: No edema, no clubbing, no cyanosis Neuro:Awake,alert, oriented X 3, moves all ext - Constitutional Vitals: Temp Pulse Resp BP Pulse Ox 98.6 F 92 H 25 H 165/99 96 11/07/19 14:20 11/07/19 14:20 11/07/19 14:20 11/07/19 14:20 11/07/19 14:20 General appearance: Present: mild distress, obese Results - Labs CBC & Chem 7: 11/06/19 15:11 11/06/19 15:11 Labs: Laboratory Last Values WBC 8.0 K/mm3 (4.5-11.0) 11/06/19 15:11 RBC 4.50 M/mm3 (3.65-5.03) 11/06/19 15:11 Hgb 13.6 gm/dl (10.1-14.3) 11/06/19 15:11 Hct 42.2 % (30.3-42.9) 11/06/19 15:11 MCV 94 fl (79-97) 11/06/19 15:11 MCH 30 pg (28-32) 11/06/19 15:11 MCHC 32 % (30-34) 11/06/19 15:11 RDW 14.6 % (13.2-15.2) 11/06/19 15:11 Plt Count 160 K/mm3 (140-440) 11/06/19 15:11 Add Manual Diff Complete 11/06/19 15:11 Total Counted 100 11/06/19 15:11 Seg Neuts % (Manual) 84.0 % (40.0-70.0) H 11/06/19 15:11 Band Neutrophils % 0 % 11/06/19 15:11 Lymphocytes % (Manual) 10.0 % (13.4-35.0) L 11/06/19 15:11 Reactive Lymphs % (Man) 0 % 11/06/19 15:11 Monocytes % (Manual) 6.0 % (0.0-7.3) 11/06/19 15:11 Eosinophils % (Manual) 0 % (0.0-4.3) 11/06/19 15:11 Basophils % (Manual) 0 % (0.0-1.8) 11/06/19 15:11 Metamyelocytes % 0 % 11/06/19 15:11 Myelocytes % 0 % 11/06/19 15:11 Promyelocytes % 0 % 11/06/19 15:11 Blast Cells % 0 % 11/06/19 15:11 Nucleated RBC % Not Reportable 11/06/19 15:11 Seg Neutrophils # Man 6.7 K/mm3 (1.8-7.7) 11/06/19 15:11 Band Neutrophils # 0.0 K/mm3 11/06/19 15:11 Lymphocytes # (Manual) 0.8 K/mm3 (1.2-5.4) L 11/06/19 15:11 Abs React Lymphs (Man) 0.0 K/mm3 11/06/19 15:11 Monocytes # (Manual) 0.5 K/mm3 (0.0-0.8) 11/06/19 15:11 Eosinophils # (Manual) 0.0 K/mm3 (0.0-0.4) 11/06/19 15:11 Basophils # (Manual) 0.0 K/mm3 (0.0-0.1) 11/06/19 15:11 Metamyelocytes # 0.0 K/mm3 11/06/19 15:11 Myelocytes # 0.0 K/mm3 11/06/19 15:11 Promyelocytes # 0.0 K/mm3 11/06/19 15:11 Blast Cells # 0.0 K/mm3 11/06/19 15:11 WBC Morphology Not Reportable 11/06/19 15:11 Hypersegmented Neuts Not Reportable 11/06/19 15:11 Hyposegmented Neuts Not Reportable 11/06/19 15:11 Hypogranular Neuts Not Reportable 11/06/19 15:11 Smudge Cells Not Reportable 11/06/19 15:11 Toxic Granulation Not Reportable 11/06/19 15:11 Toxic Vacuolation Not Reportable 11/06/19 15:11 Dohle Bodies Not Reportable 11/06/19 15:11 Pelger-Huet Anomaly Not Reportable 11/06/19 15:11 Parris Rods Not Reportable 11/06/19 15:11 Platelet Estimate Not Reportable 11/06/19 15:11 Clumped Platelets Not Reportable 11/06/19 15:11 Plt Clumps, EDTA Not Reportable 11/06/19 15:11 Large Platelets Not Reportable 11/06/19 15:11 Giant Platelets Not Reportable 11/06/19 15:11 Platelet Satelliting Not Reportable 11/06/19 15:11 Plt Morphology Comment Not Reportable 11/06/19 15:11 RBC Morphology Normal 11/06/19 15:11 Dimorphic RBCs Not Reportable 11/06/19 15:11 Polychromasia Not Reportable 11/06/19 15:11 Hypochromasia Not Reportable 11/06/19 15:11 Poikilocytosis Not Reportable 11/06/19 15:11 Anisocytosis Not Reportable 11/06/19 15:11 Microcytosis Not Reportable 11/06/19 15:11 Macrocytosis Not Reportable 11/06/19 15:11 Spherocytes Not Reportable 11/06/19 15:11 Pappenheimer Bodies Not Reportable 11/06/19 15:11 Sickle Cells Not Reportable 11/06/19 15:11 Target Cells Not Reportable 11/06/19 15:11 Tear Drop Cells Not Reportable 11/06/19 15:11 Ovalocytes Not Reportable 11/06/19 15:11 Helmet Cells Not Reportable 11/06/19 15:11 Lai-Randlett Bodies Not Reportable 11/06/19 15:11 [place] Rings Not Reportable 11/06/19 15:11 Yuri Cells Not Reportable 11/06/19 15:11 Bite Cells Not Reportable 11/06/19 15:11 Crenated Cell Not Reportable 11/06/19 15:11 Elliptocytes Not Reportable 11/06/19 15:11 Acanthocytes (Spur) Not Reportable 11/06/19 15:11 Rouleaux Not Reportable 11/06/19 15:11 Hemoglobin C Crystals Not Reportable 11/06/19 15:11 Schistocytes Not Reportable 11/06/19 15:11 Malaria parasites Not Reportable 11/06/19 15:11 Jonel Bodies Not Reportable 11/06/19 15:11 Hem Pathologist Commnt No 11/06/19 15:11 PT 12.2 Sec. (12.2-14.9) 11/06/19 15:11 INR 0.90 (0.87-1.13) 11/06/19 15:11 APTT 28.3 Sec. (24.2-36.6) 11/06/19 15:11 Sodium 144 mmol/L (137-145) 11/06/19 15:11 Potassium 4.1 mmol/L (3.6-5.0) 11/06/19 15:11 Chloride 102.3 mmol/L (98-107) 11/06/19 15:11 Carbon Dioxide 27 mmol/L (22-30) 11/06/19 15:11 Anion Gap 19 mmol/L 11/06/19 15:11 BUN 17 mg/dL (7-17) 11/06/19 15:11 Creatinine 0.4 mg/dL (0.7-1.2) L 11/06/19 15:11 Estimated GFR > 60 ml/min 11/06/19 15:11 BUN/Creatinine Ratio 43 % 11/06/19 15:11 Glucose 121 mg/dL (65-100) H 11/06/19 15:11 Calcium 9.5 mg/dL (8.4-10.2) 11/06/19 15:11 Magnesium 2.00 mg/dL (1.7-2.3) 11/06/19 15:11 Total Bilirubin 0.40 mg/dL (0.1-1.2) 11/06/19 15:11 Direct Bilirubin < 0.2 mg/dL (0-0.2) 11/06/19 15:11 Indirect Bilirubin 0.2 mg/dL 11/06/19 15:11 AST 15 units/L (5-40) 11/06/19 15:11 ALT 21 units/L (7-56) 11/06/19 15:11 Alkaline Phosphatase 44 units/L (35-129) 11/06/19 15:11 Total Creatine Kinase 34 units/L (30-135) 11/06/19 15:11 CK-MB (CK-2) 1.8 ng/mL (0.0-4.0) 11/06/19 15:11 CK-MB (CK-2) Rel Index 5.2 (0-4) H 11/06/19 15:11 Troponin T < 0.010 ng/mL (0.00-0.029) 11/06/19 15:11 NT-Pro-B Natriuret Pep 690.6 pg/mL (0-900) 11/06/19 15:11 Total Protein 6.6 g/dL (6.3-8.2) 11/06/19 15:11 Albumin 4.1 g/dL (3.9-5) 11/06/19 15:11 Albumin/Globulin Ratio 1.6 % 11/06/19 15:11 Urine Color Yellow (Yellow) 11/07/19 Unknown Urine Turbidity Clear (Clear) 11/07/19 Unknown Urine pH 7.0 (5.0-7.0) 11/07/19 Unknown Ur Specific [place] 1.024 (1.003-1.030) 11/07/19 Unknown Urine Protein 30 mg/dl mg/dL (Negative) 11/07/19 Unknown Urine Glucose (UA) Neg mg/dL (Negative) 11/07/19 Unknown Urine Ketones Neg mg/dL (Negative) 11/07/19 Unknown Urine Blood Neg (Negative) 11/07/19 Unknown Urine Nitrite Neg (Negative) 11/07/19 Unknown Urine Bilirubin Neg (Negative) 11/07/19 Unknown Urine Urobilinogen < 2.0 mg/dL (<2.0) 11/07/19 Unknown Ur Leukocyte Esterase Neg (Negative) 11/07/19 Unknown Urine WBC (Auto) 3.0 /HPF (0.0-6.0) 11/07/19 Unknown Urine RBC (Auto) 3.0 /HPF (0.0-6.0) 11/07/19 Unknown U Epithel Cells (Auto) 2.0 /HPF (0-13.0) 11/07/19 Unknown Urine Mucus Few /HPF 11/07/19 Unknown Active Medications - Current Medications Current Medications: Generic Name Dose Route Start Last Admin Trade Name Freq PRN Reason Stop Dose Admin Acetaminophen 650 mg 11/06/19 17:06 11/06/19 22:35 Tylenol PO 650 mg Q4H PRN Administration Pain MILD(1-3)/Fever >100.5/VICTOR Albuterol 2.5 mg 11/06/19 17:06 11/06/19 21:38 Proventil IH 2.5 mg Q4HRT PRN Administration Shortness Of Breath Albuterol/Ipratropium 1 ampul 11/07/19 02:00 11/07/19 13:14 Duoneb *Not For Prn Use* IH 1 ampul Q6HRT REJI Administration Sodium Chloride 1,000 mls @ 50 mls/hr 11/07/19 14:45 Nacl 0.9% 1000 Ml IV DIRECT REJI Methylprednisolone Sodium Succinate 40 mg 11/06/19 22:00 11/07/19 11:15 Solu-Medrol IV 40 mg Q12HR REJI Administration Ondansetron HCl 4 mg 11/06/19 17:06 Zofran IV Q8H PRN Nausea And Vomiting Pantoprazole Sodium 40 mg 11/06/19 13:00 11/07/19 11:12 Protonix IV 40 mg BID REJI Administration Sodium Chloride 10 ml 11/06/19 22:00 11/07/19 11:12 Sodium Chloride Flush Syringe 10 Ml IV 10 ml BID REJI Administration Sodium Chloride 10 ml 11/06/19 17:06 Sodium Chloride Flush Syringe 10 Ml IV PRN PRN LINE FLUSH
--- NOTE | 2019-11-07 15:07 | Anesthesia Day of Surgery ---
Anesthesia Day of Surgery - Day of Surgery Patient Examined: Yes Patient H&P Reviewed: Yes Patient is NPO: Yes Beta Blockers: No
--- NOTE | 2019-11-07 15:07 | Anesthesia Consultation ---
Anesthesia Consult and Med Hx Date of service: 11/07/19 - Airway Anesthetic Teeth Evaluation: Dentures Mallampati Class: Class II Intubation Access Assessment: Probably Good - Pre-Operative Health Status ASA Pre-Surgery Classification: ASA4 Proposed Anesthetic Plan: MAC - Pulmonary Hx Smoking: Yes (quit in 2016) Hx Asthma: Yes SOB: Yes COPD: Yes (home 4.5L) Hx Sleep Apnea: Yes (CPAP at home) - Cardiovascular System Hx Hypertension: Yes Hx Coronary Artery Disease: Yes Hx Heart Attack/AMI: No Hx Angina: No Hx Percutaneous Transluminal Coronary Angioplasty (PTCA): No Hx Cardia Arrhythmia: No Hx Pacemaker: No Hx Internal Defibrillator: No Hx Valvular Heart Disease: No Hx Heart Murmur: No Hx Peripheral Vascular Disease: No - Central Nervous System Hx Neuromuscular Disorder: No Hx Seizures: No CVA: No Hx Back Pain: Yes - Gastrointestinal Hx Ulcer: No Hx Gastroesophageal Reflux Disease: Yes - Endocrine Hx Renal Disease: No Hx End Stage Renal Disease: No Hx Cirrhosis: Yes (Hep C) Hx Liver Disease: Yes Hx Insulin Dependent Diabetes: No Hx Non-Insulin Dependent Diabetes: No Hx Thyroid Disease: No Hx Hypothyroidism: Yes Hx Hyperthyroidism: No - Hematic Hx Anemia: No Hx Sickle Cell Disease: No - Other Systems Hx Alcohol Use: Yes (quit in 2016) Hx Substance Use: No Hx Cancer: No Hx Obesity: No
[2019-11-07] MEDS ORDERED: PROPOFOL 200 MG/20 ML VIAL IV ONE ×2 (15:30)
--- NOTE | 2019-11-07 16:02 | Post Operative Note ---
Pre-op diagnosis: Dysphagia, possible foreign body Post-op diagnosis: other (Web, no foreign body) Findings: 1. 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 Small hiatal hernia 3. Otherwise normal UGI tract Procedure: EGD with Savary Dilation Anesthesia: MAC Surgeon: LINDEN CONTRERAS Estimated blood loss: minimal Pathology: none Specimen disposition: other (N/A) Condition: stable Disposition: floor (Recs: 1. Liquid diet and advance as tolerated. 2. Continue daily protonix. 3. OK to d/c home with repeat dilation as needed as an outpatient. 4. We will sign off; please call if needed.)
--- NOTE | 2019-11-07 16:41 | Operative Report ---
PROCEDURE PERFORMED: Esophagogastroduodenoscopy with Savary dilation. PREOPERATIVE DIAGNOSIS: Dysphagia with a possible foreign body in the proximal esophagus. POSTOPERATIVE DIAGNOSES: Cervical web with no evidence of foreign body. ENDOSCOPIST: Jv Gregorio MD INSTRUMENT: Olympus video endoscope. MEDICATIONS: MAC anesthesia by [facility]. COMPLICATIONS: No apparent complications. ESTIMATED BLOOD LOSS: Minimal. SPECIMENS: None. IMPLANTS: None. ASSISTANTS: None. CONDITION AT COMPLETION: Stable. TECHNIQUE: The patient was informed of the risks and benefits of the procedure. She signed the informed consent to proceed. She was placed in the left lateral decubitus position. The above sedative medications were given. Her vital signs remained stable throughout the procedure. The instrument was advanced from the mouth to the second portion of the duodenum under direct visualization. At that point, the bowel was insufflated and the endoscope was slowly withdrawn. A cervical web was noted in the proximal esophagus and a guidewire was inserted into the distal stomach. The endoscope was exchanged over the guidewire and the 16-[place]ic Savary dilation was performed of the Savary web with a good post-endoscopic appearance upon reinsertion of the scope, and the procedure was terminated. FINDINGS: 1. Mild cervical web in the proximal esophagus immediately distal to the cricopharyngeus; it was mild and the scope could pass with minimal resistance, but there was LA grade A esophagitis associated with it consistent with recent impaction by the patient's pills. A. The cervical web was dilated using a 16-Icelandic Savary dilator over a guidewire with an acceptable post-endoscopic appearance with improved resistance to passage of the endoscope and no evidence of trauma. 2. Small hiatal hernia. 3. Otherwise, normal upper gastrointestinal tract. RECOMMENDATIONS: 1. Liquid diet and advance as tolerated. 2. Continue daily Protonix. 3. Okay to discharge the patient home with repeat dilation as needed as an outpatient. 4. We will sign off. Please call as needed. JOB# [id number] LOGAN/NTS
--- NOTE | 2019-11-07 17:23 | Post Anesthesia Evaluation ---
- Post Anesthesia Evaluation Patient Participated: Yes Airway Patent: Yes Stable Respiratory Function: Yes (returned to baseline O2 requirements) Nausea/Vomiting: No Temp > 96.8F: Yes Pain Manageable: Yes Adequeate Hydration: Yes Anesthesia Complications: No
[2019-11-07] MEDS: SUCRALFATE 1 GM/10 ML ORAL LIQD PO SCH ×2 (17:44→23:02)
[2019-11-07] MEDS: oxyCODONE /ACETAMINOPHEN 5-325MG TAB PO PRN (23:02)
[2019-11-08] MEDS: IPRATROPIUM/ALBUTEROL SULFATE 3 ML AMPUL.NEB IH SCH (04:06)
[2019-11-08] MEDS: oxyCODONE /ACETAMINOPHEN 5-325MG TAB PO PRN ×2 (04:41→15:09)
[2019-11-08] MEDS ORDERED: ACETAMINOPHEN 325 MG TAB PO PRN (08:15)
[2019-11-08] MEDS ORDERED: ALBUTEROL 2.5 MG/3 ML NEBU IH PRN (08:15)
[2019-11-08] MEDS ORDERED: hydrALAZINE 20 MG/1 ML INJ IV PRN (08:17)
[2019-11-08] MEDS: methylPREDNISolone Sod Succinate 40 MG/1 ML INJ IV SCH (09:15)
[2019-11-08] MEDS: SUCRALFATE 1 GM/10 ML ORAL LIQD PO SCH ×2 (09:16→12:44)
[2019-11-08] MEDS: hydrALAZINE 25 MG TAB PO SCH ×2 (09:16→15:09)
[2019-11-08] MEDS ORDERED: BUDESONIDE 0.5 MG/2 ML NEBU IH SCH (09:30)
[2019-11-08] MEDS ORDERED: IPRATROPIUM/ALBUTEROL SULFATE 3 ML AMPUL.NEB IH SCH (09:30)
[2019-11-08] MEDS ORDERED: PANTOPRAZOLE 40 MG TAB PO SCH (10:00)
[2019-11-08] MEDS ORDERED: amLODIPine 10 MG TAB PO SCH (10:00)
[2019-11-08] MEDS ORDERED: ASPIRIN 325 MG TAB PO SCH (10:00)
[2019-11-08 14:51] VITALS: BP 151/89
--- NOTE | 2019-11-08 15:27 | Discharge Summary ---
Providers - Providers Date of Admission: 11/06/19 17:06 Date of discharge: 11/08/19 Attending physician: MICHEAL MARCUS 11/06/19 10:36 Consult to Physician [CONS] Stat Comment: Consulting Provider: LINDEN GREGORIO Physician Instructions: Reason For Exam: Dysphagia Primary care physician: TEA SOLORIO Hospitalization Condition: Fair Hospital course: 69 YO Female with COPD, Chronic Respiratory Failure on 4L home oxygen via [place], HTN, Diastolic CHF presented to ED for evaluation. Pt stated that she feels like she has something "stuck in her throat" Pt stated that she took several of her medications today and shortly after ingestion she developed the aforementioned symptoms. has experienced shortness of breath over the past 4 days with worsening symptoms over the past 2 days. She was seen and evaluated in ED and underwent a barium swallow and was found to have a distal filling defect, as well as Acute on Chronic Respiratory Failure requiring nebulizer therapy and increased supplemental oxygen. Pt treated with supportive care and placed in observation status at [facility]. She was ealuated by GI Physician , had EGD done. 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 Small hiatal hernia. She tolerated diet, advanced diet and was discharged home to follow with GI as outpatient. Total time spent on discharge, 34 mins Disposition: DC-01 TO HOME OR SELFCARE - Discharge Diagnoses (1) COPD exacerbation Status: Acute (2) HTN (hypertension) Status: Acute Qualifiers: Hypertension type: essential hypertension Qualified Code(s): I10 - Essential (primary) hypertension (3) Chronic diastolic (congestive) heart failure Status: Acute (4) Chronic respiratory failure with hypoxia Status: Acute Core Measure Documentation - Palliative Care Palliative Care/ Comfort Measures: Not Applicable - Core Measures Any of the following diagnoses?: heart failure - Heart Failure Discharge Requirements [facility] for LVSD if EF <40%: Not Applicable Beta rama at discharge: No Reason for no beta rama on DC: COPD Exam - Constitutional Vitals: Temp Pulse Resp BP Pulse Ox 98.0 F 96 H 20 151/89 97 11/08/19 13:12 11/08/19 13:12 11/08/19 13:12 11/08/19 13:12 11/08/19 13:12 Plan Activity: advance as tolerated Diet: low fat, low cholesterol, low salt Plan of Treatment: 1.Follow up with PCP in 1 week. 2.Follow up with Pulmonology in 1 week. 3.Follow up with Dr. Gregorio, GI in 1 week. Follow up with: TEA SOLORIO MD [Primary Care Provider] - 3-5 Days Prescriptions: Pantoprazole [Protonix TAB] 40 mg PO QDAY #30 tablet
== END 2019-11-08 16:05 | disposition home or self-care (01) ==
LOC: ED 08:47 → 2B-ACE 17:06
PROVIDERS: ADMIT Internal Medicine; ATTEND Internal Medicine
DX: J96.21 Acute and chronic respiratory failure with hypoxia (principal); T18.108A Unspecified foreign body in esophagus causing other injury, initial encounter; R13.10 Dysphagia, unspecified; J44.1 Chronic obstructive pulmonary disease with (acute) exacerbation; I11.0 Hypertensive heart disease with heart failure; I50.9 Heart failure, unspecified; Z90.49 Acquired absence of other specified parts of digestive tract; Z98.891 History of uterine scar from previous surgery; Z87.891 Personal history of nicotine dependence; Z98.890 Other specified postprocedural states; Z79.82 Long term (current) use of aspirin
CPT/HCPCS: 36415; 43248; 74220; 80048; 80076; 81001; 82550; 82553; 83735; 83880; 84484; 85007; 85025; 85610; 85730; 94640; 94644; 94660; 94760; 96374; 96375; 96376; 99284; C1769; C9113; G0378; J2060; J2270; J2704; J2920; J2930